=== PATIENT | male | born 1990 | race Caucasian/White ===

== ENCOUNTER 2021-09-21 09:17 | Emergency (ER) | payer BC ==
[~2021-09-21] VITALS: Ht 185.4 cm; Wt 99.8 kg
[2021-09-21 09:23] VITALS: BP 136/69
== END 2021-09-21 10:43 | disposition home or self-care (01) ==
LOC: ER 09:17
DX: S70.01XA Contusion of right hip, initial encounter (principal); X58.XXXA Exposure to other specified factors, initial encounter; Y93.89 Activity, other specified; Y92.89 Other specified places as the place of occurrence of the external cause; Y99.8 Other external cause status